=== PATIENT | female | born 1960 | race Caucasian/White ===

== ENCOUNTER 2021-08-02 11:28 | Outpatient (CLI) | payer BC | END 2021-08-02 11:29 | disposition home or self-care (01) | LOC: CSHMRI 11:28 | PROVIDERS: ATTEND Physician Assistant Medical | DX: R10.13 Epigastric pain (principal); K86.2 Cyst of pancreas; Z85.038 Personal history of other malignant neoplasm of large intestine; K76.89 Other specified diseases of liver; D18.03 Hemangioma of intra-abdominal structures | CPT/HCPCS: 74183 ==

== ENCOUNTER 2023-07-26 14:35 | Outpatient (CLI) | payer BC ==
[~2023-07-26 14:35] MED LIST: Magnevist 469MG/ML 20 ML VIAL ONE
== END 2023-07-26 14:36 | disposition home or self-care (01) ==
LOC: CSHMRI 14:35
PROVIDERS: ATTEND Physician Assistant Medical
DX: K86.2 Cyst of pancreas (principal); K76.89 Other specified diseases of liver; D18.03 Hemangioma of intra-abdominal structures
CPT/HCPCS: 74183